=== PATIENT | female | born 1950 | race Caucasian/White ===

== ENCOUNTER 2016-12-27 22:56 | Emergency (ER) | payer OTHER, MEDICARE ==
[2016-12-27] MEDS ORDERED: Adacel Vial IM ONE ×2 (23:09→23:14)
[2016-12-27 23:22] VITALS: BP 148/88; PULSE 96; O2SAT 96
--- NOTE | 2016-12-27 23:51 | ERPHSYRPT ---
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-reports pain et swelling to left ankle- bleeding from lip-soreness to left elbow-denies loss of consciousness-denies hitting head Occurred: just prior to arrival Reason for Fall: tripped Injuries/Pain Location: face, upper extremity (left), lower extremity (right foot) Loss of Consciousness: no loss of consciousness Severity of Pain-Max: mild Severity of Pain-Current: mild Modifying Factors: Improves With: cold therapy Associated Symptoms (Fall): denies symptoms Allergies/Adverse Reactions: No Known Drug Allergies Allergy (Unverified 12/27/16 23:03) Home Medications: No Home Meds 1 ea UD 12/27/16 [History] Hx Tetanus, Diphtheria Vaccination/Date Given: No Hx Influenza Vaccination/Date Given: Yes Hx Pneumococcal Vaccination/Date Given: No Immunizations Up to Date: Yes - Review of Systems Constitutional: No Fever, No Chills Eyes: No Symptoms Ears, Nose, & Throat: No Symptoms Respiratory: No Cough, No Dyspnea Cardiac: No Chest Pain, No Edema, No Syncope Abdominal/Gastrointestinal: No Abdominal Pain, No Nausea, No Vomiting, No Diarrhea Genitourinary Symptoms: No Dysuria Musculoskeletal: No Back Pain, No Neck Pain Skin: No Rash Neurological: No Dizziness, No Focal Weakness, No Sensory Changes Psychological: No Symptoms Endocrine: No Symptoms All Other Systems: Reviewed and Negative - Past Medical History Pertinent Past Medical History: No - Past Surgical History Past Surgical History: Yes Female Surgical History: Hysterectomy, Mastectomy - Social History Smoking Status: Never smoker Exposure to second hand smoke: No Drug Use: none Patient Lives Alone: No - Nursing Vital Signs Nursing Vital Signs: Initial Vital Signs Temperature 98.4 F Temperature Source Oral Pulse Rate 96 Respiratory Rate 18 Blood Pressure [Right Arm] 148/88 Pain Intensity 4 - Melissa Coma Score Best Eye Response (Carlos): (4) open spontaneously Best Verbal Response (Carlos): (5) oriented Best Motor Response (Melissa): (6) obeys commands Melissa Total: 15 - Physical Exam General Appearance: no apparent distress, alert Head Injury: no evidence of injury Eye Exam: PERRL/EOMI ENT Exam: airway nml Neck Exam: normal inspection, No tenderness Respiratory/Chest Exam: normal breath sounds, No chest tenderness, No respiratory distress Cardiovascular Exam: normal heart sounds, regular rate/rhythm Gastrointestinal Exam: soft, No tenderness, No distention, No guarding, No ecchymosis Back Exam: normal inspection, No vertebral tenderness Extremity Exam: normal inspection, normal range of motion, pelvis stable, pain with movement, weight bearing (mild difficulty on right foot), No deformities Neurologic Exam: alert, oriented x 3, cooperative, sensation nml, No motor deficits Skin Exam: normal color, warm, dry SpO2: 96 Oxygen Delivery: Room Air - Course Nursing assessment & vital signs reviewed: Yes - Radiology Exams Foot X-ray Interpretation: Teleradiologist Report Elbow X-ray Interpretation: Teleradiologist Report Ordered Tests: Active Orders 24 hr Category Date Time Status Cold Application STAT Care 12/27/16 23:05 Active Wound Care Routine Care 12/27/16 23:05 Active ELBOW (MINIMUM 3 VIEWS) Stat Exams 12/27/16 23:05 Ordered FOOT (MINIMUM 3 VIEWS) Stat Exams 12/27/16 23:05 Ordered Medication Summary Discontinued Medications Generic Name Dose Route Start Last Admin Trade Name Freq PRN Reason Stop Dose Admin Diphtheria/Tetanus/Acell Pertussis 0.5 ml 12/27/16 23:09 12/27/16 23:15 Adacel Vial IM 12/27/16 23:10 0.5 ml .ONCE ONE Administration Diphtheria/Tetanus/Acell Pertussis Confirm 12/27/16 23:14 Adacel Vial Administered 12/27/16 23:15 Dose 0.5 ml IM .STK-MED ONE - Progress Progress: improved Counseled pt/family regarding: diagnosis, need for follow-up, rad results - Departure Time of Disposition: 23:51 Departure Disposition: Home Clinical Impression: Right foot injury Qualifiers: Encounter type: initial encounter Qualified Code(s): S99.921A - Unspecified injury of right foot, initial encounter Elbow injury Qualifiers: Encounter type: initial encounter Laterality: left Qualified Code(s): S59.902A - Unspecified injury of left elbow, initial encounter Condition: Stable Critical Care Time: No Referrals: WM LEWIS [Primary Care Provider] - Instructions: Prevent Falls, Contusion Additional Instructions: SPRAINS/STRAINS/CONTUSIONS 1. Rest the affected area as much as possible for the next few days. 2. Apply ice to the affected area for 20-30 minutes at a time, several times a day. 3. If you receive an elastic wrap, wear it only while awake for comfort and support. Re-wrap the elastic wrap if it feels too tight or too loose. 4. If swelling is present, elevate the affected part above the level of the heart for at least 2 to 3 days. 5. Use splints, slings, or crutches as instructed. 6. Watch for severe swelling, coldness, numbness, and discoloration of the fingers and toes. See your family physician or return to the emergency department if any of these are noted.
--- NOTE | 2016-12-28 08:32 | XRAY ---
Indication: Pain following fall. Comparison: None 3 views of the left elbow obtained. No bony, articular, or soft tissue abnormalities. Comment: Preliminary interpretation was made by [facility]. No discrepancy.
--- NOTE | 2016-12-28 08:32 | XRAY ---
Indication: Pain following fall. Comparison: None 3 nonweightbearing views of the right foot demonstrates small plantar heel spur, tiny calcaneal bone island, first MTP minimal degenerative changes, and navicular accessory ossicle. No other bony, articular, or soft tissue abnormalities. Comment: Preliminary interpretation was made by [facility]. No critical discrepancy.
== END 2016-12-27 23:58 | disposition home or self-care (01) ==
LOC: ED 22:56
DX: S99.921A Unspecified injury of right foot, initial encounter (principal); S59.902A Unspecified injury of left elbow, initial encounter; S00.511A Abrasion of lip, initial encounter; W01.0XXA Fall on same level from slipping, tripping and stumbling without subsequent striking against object, initial encounter
CPT/HCPCS: 73080; 73630; 90471; 90715; 99284